=== PATIENT | female | born 2000 | race Caucasian/White ===

== ENCOUNTER 2021-11-18 14:36 | Emergency (ER) | payer OTHER, SELFPAY ==
[2021-11-18 14:47] VITALS: BP 135/82; PULSE 97; RESP 16; TEMP 37.4; O2SAT 97; BMI 31.2
--- OUTSIDE RECORDS SUMMARY | 2021-11-18 15:33 | XMS_ITS | Summary of Care ---
:2000 Author Organization [facility], [facility] Address [address] [id number]- Care Team Providers Name Role Phone JANELL ESQUIVEL MD Primary Care Physician Encounter [facility] [id number] Date(s): 02/21/20 - 02/21/20 [facility] [address] [id number]- [facility] Discharge Disposition: Discharge Attending Physician: YUKO LAYNE MD Referring Physician: RON GREENBERG MD Allergies, Adverse Reactions, Alerts No Known Medication Allergies
--- OUTSIDE RECORDS SUMMARY | 2021-11-18 15:33 | XMS_ITS | Summary of Care ---
:2000 Author Organization [facility] Address [address] [place] [address]- Care Team Providers Name Role Phone JANELL ESQUIVEL MD Primary Care Physician Encounter [facility] [id number] Date(s): 02/21/20 - 02/21/[address] [address]- [facility] Discharge Disposition: Discharge Attending Physician: WARREN ROSAS PA-C Referring Physician: WARREN ROSAS PA-C Allergies, Adverse Reactions, Alerts No Known Medication Allergies
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
== END 2021-11-18 16:25 | disposition home or self-care (01) ==
PROVIDERS: Emergency Provider Emergency Medicine Emergency Medical Services
DX: S09.90XA Unspecified injury of head, initial encounter (principal); R51.9 Headache, unspecified; Y29.XXXA Contact with blunt object, undetermined intent, initial encounter; Y93.9 Activity, unspecified; Y92.9 Unspecified place or not applicable; Y99.0 Civilian activity done for income or pay
CPT/HCPCS: 99282